=== PATIENT | male | born 2000 | race Caucasian/White ===

== ENCOUNTER 2022-07-22 23:26 | Emergency (ER) | payer OTHER ==
[~2022-07-22] VITALS: Ht 172.7 cm; Wt 86.2 kg
[2022-07-22 23:28] VITALS: BP 143/76
--- NOTE | 2022-07-22 23:28 | NUR ---
Patient BIB by P. Patient taken to Chair B.
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
--- NOTE | 2022-07-22 23:54 | NUR ---
Dr. Herrera examining patient.
[2022-07-23 00:06] VITALS: BP 143/76
--- NOTE | 2022-07-23 00:06 | NUR ---
Patient D/C to custody.
== END 2022-07-23 00:06 ==
LOC: MED 23:26
DX: Z02.89 Encounter for other administrative examinations (principal)
CPT/HCPCS: 99283